=== PATIENT | female | born 1985 | race African-American/Black ===

== ENCOUNTER 2021-04-09 17:18 | Emergency (ER) | payer OTHER ==
[~2021-04-09] VITALS: Ht 160 cm; Wt 96.6 kg
[2021-04-09] MEDS ORDERED: ULTRAM50 MG PO (22:39)
[2021-04-09] MEDS ORDERED: TAMS0.4C PO (22:39)
== END 2021-04-09 22:46 | disposition home or self-care (01) ==
LOC: ER 17:18
DX: N20.0 Calculus of kidney (principal); K29.70 Gastritis, unspecified, without bleeding; K52.9 Noninfective gastroenteritis and colitis, unspecified; Z11.52 Encounter for screening for COVID-19

== ENCOUNTER 2021-12-11 11:48 | Outpatient (CLI) | payer OTHER ==
[~2021-12-11 11:48] MED LIST: TAMS0.4C PO; ULTRAM50 MG PO
== END 2021-12-11 12:37 | disposition home or self-care (01) ==
LOC: ASH CLINIC 11:48
PROVIDERS: ATTEND General Practice
DX: U07.1 COVID-19 (principal); Z23 Encounter for immunization

== ENCOUNTER 2023-04-06 08:30 | Emergency (ER) | payer OTHER ==
[~2023-04-06] VITALS: Ht 160 cm; Wt 90.7 kg
[2023-04-06] MEDS ORDERED: KETO10TA2 PO (10:22)
== END 2023-04-06 10:35 | disposition home or self-care (01) ==
LOC: ER 08:30
DX: S63.592A Other specified sprain of left wrist, initial encounter (principal); X58.XXXA Exposure to other specified factors, initial encounter; Y93.89 Activity, other specified; Y92.89 Other specified places as the place of occurrence of the external cause; Y99.8 Other external cause status